=== PATIENT | female | born 1950 | race African-American/Black ===

== ENCOUNTER 2018-06-13 15:01 | Emergency (ER) | payer MEDICARE, BC ==
[~2018-06-13] VITALS: Ht 162.6 cm; Wt 70.0 kg
[~2018-06-13 15:01] MED LIST: AMLO10TA80 PO; ASPI-1159 PO; ATOR40TA70 PO; CARTIA PO; CLOP75TA16 PO; LANS30CA55 PO; LIP40 PO; LOSA100T14 PO; METF-516 PO; METO-411 PO; NEBI10TA2 PO; SPIR25TA6 PO; ZET10 PO
[2018-06-13] MEDS ORDERED: OXYCODONE HCL/ACETAMINOPHEN 5/325MG TABLET PO ONE (18:00)
[2018-06-13 18:45] VITALS: BP 186/89
== END 2018-06-13 18:49 | disposition home or self-care (01) ==
LOC: ER 15:01
DX: S32.019A Unspecified fracture of first lumbar vertebra, initial encounter for closed fracture (principal); W01.0XXA Fall on same level from slipping, tripping and stumbling without subsequent striking against object, initial encounter; Y93.H9 Activity, other involving exterior property and land maintenance, building and construction; Y92.014 Private driveway to single-family (private) house as the place of occurrence of the external cause; N20.0 Calculus of kidney; K57.90 Diverticulosis of intestine, part unspecified, without perforation or abscess without bleeding; K80.20 Calculus of gallbladder without cholecystitis without obstruction; I10 Essential (primary) hypertension; E11.9 Type 2 diabetes mellitus without complications; I25.10 Atherosclerotic heart disease of native coronary artery without angina pectoris; Z98.61 Coronary angioplasty status; Z79.02 Long term (current) use of antithrombotics/antiplatelets; Z79.82 Long term (current) use of aspirin
CPT/HCPCS: 74176; 99284

== ENCOUNTER → 2018-07-14 | Outpatient (CLI) | payer MEDICARE, BC | END | disposition home or self-care (01) | LOC: MRI 12:36 | PROVIDERS: ATTEND Neurological Surgery | DX: M50.31 Other cervical disc degeneration, high cervical region (principal); M48.02 Spinal stenosis, cervical region; D18.09 Hemangioma of other sites; M25.78 Osteophyte, vertebrae | CPT/HCPCS: 72141 ==

== ENCOUNTER → 2018-09-01 | Outpatient (CLI) | payer MEDICARE, BC | END | disposition home or self-care (01) | LOC: RAD 12:11 | PROVIDERS: ATTEND Neurological Surgery | DX: M47.816 Spondylosis without myelopathy or radiculopathy, lumbar region (principal) | CPT/HCPCS: 72114 ==

== ENCOUNTER 2018-10-17 19:12 | Emergency (ER) | payer MEDICARE, BC ==
[~2018-10-17] VITALS: Ht 162.6 cm; Wt 71.0 kg
[~2018-10-17 19:12] MED LIST changes: -ASPI-1159 PO; +ASPI-1393 PO; -CLOP75TA16 PO; +CLOP75TA4 PO; -LOSA100T14 PO; +LOSA100T32 PO
[2018-10-17] MEDS ORDERED: ACETAMINOPHEN 325MG TABLET PO ONE (20:15)
[2018-10-17 21:53] VITALS: BP 179/64
== END 2018-10-18 | disposition home or self-care (01) ==
LOC: ER 19:12
DX: S42.392A Other fracture of shaft of left humerus, initial encounter for closed fracture (principal); S52.592A Other fractures of lower end of left radius, initial encounter for closed fracture; S52.692A Other fracture of lower end of left ulna, initial encounter for closed fracture; E11.9 Type 2 diabetes mellitus without complications; E78.00 Pure hypercholesterolemia, unspecified; I10 Essential (primary) hypertension; W18.39XA Other fall on same level, initial encounter; Y93.89 Activity, other specified; Y92.89 Other specified places as the place of occurrence of the external cause; Y99.8 Other external cause status; Z87.891 Personal history of nicotine dependence; Z79.899 Other long term (current) drug therapy
CPT/HCPCS: 29105; 73030; 73090; 73110; 99284; A4565

== ENCOUNTER → 2020-06-28 | Outpatient (CLI) | payer MEDICARE, BC ==
[~2020-06-28] MED LIST changes: -ASPI-1393 PO; +ASPI-1497 PO; +CLOP-31 PO; -CLOP75TA4 PO; +EZET10TA13 PO; +KETO5DRO37 LEFTEYE; -METF-516 PO; +MOXI3DRO12 LEFTEYE; +PRED5DRO22 LEFTEYE; -ZET10 PO
== END | disposition home or self-care (01) ==
LOC: LAB 14:43
PROVIDERS: ATTEND Internal Medicine Endocrinology, Diabetes & Metabolism
DX: Z20.822 Contact with and (suspected) exposure to COVID-19 (principal)
CPT/HCPCS: C9803; U0003